=== PATIENT | male | born 1985 | race Caucasian/White ===

== ENCOUNTER → 2023-09-16 08:10 | Outpatient (REF) | payer BC, SELFPAY | LOC: RSP 08:10 | PROVIDERS: ATTENDING PHYSICIAN Registered Nurse Ambulatory Care | DX: R09.89 Other specified symptoms and signs involving the circulatory and respiratory systems (principal) | CPT/HCPCS: 94727; 94729; 88738; 94010 ==

== ENCOUNTER → 2023-10-10 07:57 | Outpatient (REF) | payer BC, SELFPAY | LOC: HWRAD 07:57 | PROVIDERS: ATTENDING PHYSICIAN Family Medicine | DX: R94.2 Abnormal results of pulmonary function studies (principal); J39.2 Other diseases of pharynx | CPT/HCPCS: 70491; 71260; Q9967 ==